=== PATIENT | female | born 1995 | race African-American/Black ===

== ENCOUNTER 2025-05-16 17:21 | Emergency (ER) | payer SELFPAY ==
[2025-05-16 18:49] LABS: APPEARANCE,URINE SLT CLOUDY; GLUCOSE,URINE NEGATIVE (NEGATIVE); OCCULT BLOOD,URINE NEGATIVE (NEGATIVE)
[2025-05-16 18:59] LABS: EPITHELIAL CELLS,URINE OCCASIONAL (NONE-FEW)
== END 2025-05-16 19:02 | disposition home or self-care (01) ==
LOC: MW.ED 17:21
DX: Z32.02 Encounter for pregnancy test, result negative (principal); Z75.3 Unavailability and inaccessibility of health-care facilities
CPT/HCPCS: 81001; 81025; 99282; 99283